=== PATIENT | female | born 2000 | race Two or more races ===

== ENCOUNTER 2021-06-01 10:23 | Outpatient (CLI) | payer OTHER | END 2021-06-01 11:42 | disposition home or self-care (01) | LOC: PRENATAL 10:23 | PROVIDERS: ATTEND Obstetrics & Gynecology Maternal & Fetal Medicine | DX: O35.0XX1 Maternal care for (suspected) central nervous system malformation in fetus, fetus 1 (principal); O35.3XX1 Maternal care for (suspected) damage to fetus from viral disease in mother, fetus 1; O98.512 Other viral diseases complicating pregnancy, second trimester; Z36.89 Encounter for other specified antenatal screening; Z3A.24 24 weeks gestation of pregnancy ==

== ENCOUNTER 2021-06-05 16:11 | Outpatient (CLI) | payer OTHER | END 2021-06-05 19:05 | disposition home or self-care (01) | LOC: OBS/DEL 16:11 | PROVIDERS: ATTEND Obstetrics & Gynecology | DX: O26.892 Other specified pregnancy related conditions, second trimester (principal); R10.2 Pelvic and perineal pain; Z3A.23 23 weeks gestation of pregnancy ==

== ENCOUNTER 2021-09-16 14:45 | Inpatient (IN) | payer OTHER ==
[~2021-09-16] VITALS: Ht 160 cm; Wt 85.3 kg
[2021-09-19] MEDS ORDERED: PRENATAL CAPLE1 EAC1 PO (12:58)
== END 2021-09-21 14:03 | disposition home or self-care (01) | DRG 807 ==
LOC: OB/GYN 09-19 11:36 → LDR 09-19 11:36 → OB/GYN 09-19 16:09 → SURH 09-27 14:45
PROVIDERS: ADMIT Obstetrics & Gynecology; ATTEND Obstetrics & Gynecology
PROC: 10E0XZZ Delivery of Products of Conception, External Approach (ICD-10-PCS; principal; 2021-09-19)
PROC: 4A1HXCZ Monitoring of Products of Conception, Cardiac Rate, External Approach (ICD-10-PCS; 2021-09-19)
DX: O80 Encounter for full-term uncomplicated delivery (principal); Z37.0 Single live birth; Z3A.38 38 weeks gestation of pregnancy; Z20.822 Contact with and (suspected) exposure to COVID-19